=== PATIENT | male | born 1970 | race Two or more races ===

== ENCOUNTER → 2017-11-10 | Outpatient (CLI) | payer BC ==
--- NOTE | 2017-11-10 18:35 | REP ---
Clinical: Acute cough . Comparison: None . Technique: PA and lateral. Findings: The mediastinum and cardiac silhouette are normal. The lung tran are clear and without acute consolidation, effusion, or pneumothorax. The skeletal structures are intact and normal. Impression: 1. No acute cardiopulmonary process. Signed by Jose Moffett MD 11/10/2017 06:27 P
== END ==
LOC: M LRY 17:18
PROVIDERS: ATTEND Nurse Practitioner Family
DX: R05 Cough (principal)